=== PATIENT | female | born 1980 | race Caucasian/White ===

== ENCOUNTER 2021-10-07 00:32 | Day surgery (SDC) | payer OTHER, SELFPAY ==
[2021-10-01 13:46] VITALS: BMI 27.3
--- NOTE | 2021-10-03 10:32 | PC.NURSE ---
Report to the Outpatient Waiting Room, entrance under the green pavilion located off [facility], at time _0630 on date _10/07/21_. OR Time: 0830____. IF YOUR SURGERY TIME IS CHANGED, WE WILL CALL YOU 10/04/21 AFTERNOON - You and your visitor will be asked a series of questions to screen for COVID 19 for your protection. - Only one visitor is allowed at this time. - The patient visitor is requested to leave or wait in car when not with patient. - A mask is required within the hospital. Patients may have clear liquids (water, carbonated beverages, clear teas, apple juice) until 3 hours prior to surgery with a maximum of 20 ounces. - No food from midnight until time of surgery YOU MAY HAVE CLEAR LIQUIDS UNTIL 0530 ON THE MORNING OF SURGERY - Take the following medications with a SIP of water the morning of surgery: ___ESCITALOPRAM Medications to discontinue per physician N/A Date to take last dose N/A Please no make-up, nail azeri, hairspray, perfume, deodorant, or body powder the day of surgery. No jewelry (including any body piercings) or valuables the day of surgery, leave them at home. Please take a shower or bath the night before, or the morning of, surgery with an antibacterial soap. Wear comfortable, loose fitting clothing. Children are encouraged to wear pajamas. - Jewelry must be removed prior to entering the operating room. Rings and piercings that are not removed may be cut off. - The hospital will not accept responsibility for valuables. - Please leave all valuables, including medications, at home the day of surgery. If you are going home after surgery, a licensed pile driver operator helper must drive you home. - NO public transportation without another adult. - We recommend that an adult stay with you for 24 hours following discharge. - We also recommend that you do not drive, make important decision, drink alcoholic beverages, or take any drugs that were not prescribed by your health care provider for at least 24 hours after your discharge time. Follow any additional instructions given to you from your surgeon. If you or anyone in your household have experienced Covid symptoms in the past week, please notify your surgeon or the nurse liaison at the phone number below for possible testing. Telephone instructions given to __VALERIE and asked if any additional questions and then verbalized understanding. Patient advised to call surgeon office or pre surgery nurse liaison [phone] if any additional questions.
--- NOTE | 2021-10-06 16:17 | P.HP_ITS ---
H&P: HPI History of Present Illness Date/Time: 10/06/21 16:17 Chief Complaint: sterilization requested Narrative: Dorita is a 40yo P2002, who presents for sterilization procedure. She has a normal pap 06/2020. She is currently using nuvaring for BC and denies any issues w/ it; wants her to get a vasectomy but he's reluctant. She's tired of using hormonal control. She has h/o eclampsia and then severe pre- eclampsia. Her cycles are regular, very light and short. She reports having a Mirena in the past, however, they could not get the new IUD in x2 and she was having a lot of pain and bleeding. She is sexually active without issue. She denies any breast issues. Was recently started on lexapro for anxiety and reports doing much better. Review of Systems Review of Systems: All systems reviewed & are unremarkable except as noted in HPI and below (HPI) PMFSH Past Medical History Medical History Eclampsia Surgical History Surgical History Delivery by section xs 2 H/O gynecological procedure mirena iud insertion- 2010 - mirena iud removal 2013- mirena iud insertion 2014mirena iud removal 2019 mirena iud insertion 07/12/2020 Family History Family History Other Diabetes mellitus Hypertension Social History Social History Smoking status: Never smoker Alcohol intake: current Substance use: never Substance use type: does not use Living arrangements: with family Additional occupation/education comments: Asst principal Gender identity (if verbalized by the patient): Female Sexual Orientation (if Verbalized by the Patient): Straight or Heterosexual Spiritual care concerns: No Meds Home Medications and Allergies Home Medications Medication Instructions Recorded Confirmed Type escitalopram oxalate 10 mg tablet 10 mg PO DAILY 07/10/21 10/01/21 History (Lexapro) etonogestrel 0.12 mg-ethinyl 1 vag ring vaginal ONCE #3 ea 07/10/21 10/01/21 Rx estradiol 0.015 mg/24 hr vaginal ring (NuvaRing) cetirizine 10 mg tablet (Zyrtec) 10 mg PO DAILY 10/01/21 10/01/21 History Allergies Allergy/AdvReac Type Severity Reaction Status Date / Time No Known Allergies Allergy Unverified 07/10/21 15:45 Exam Const: General: cooperative, comfortable and no acute distress Resp: Effort & Inspection: normal respiratory effort Cardio: Rate: regular rate GI: Inspection: normal to inspection and non-distended GI Palp: Yes Soft to palpation : Other: deferred to OR Skin: General skin exam: normal color Neuro: General: patient oriented x3 Psych: Appearance: grossly normal Affect: normal affect Attitude: cooperative Assessment and Plan Assessment and plan (1) Admission for sterilization: Code(s): Z30.2 - Encounter for sterilization Status: Acute Plan - Sterilization discussed; all other control options discussed; pt aware it's a permanent procedure - Proceed with Laparoscopic bilateral salpingectomy - Ricks and benefits discussed in detail
--- NOTE | 2021-10-06 16:23 | WPDHPUPDATE1 ---
History and Physical Update Update Date/Time: 10/06/21 16:23 History and Physical has been reviewed, including an updated exam of the patient. There are NO changes in the patient's condition. Risks, benefits, and alternatives have been discussed and questions answered. Patient agrees to proceed with procedure.
[2021-10-07] VITALS (9 sets, daily range): BP systolic 78–127; BP diastolic 48–83; PULSE 57–80; RESP 12–18; TEMP 36.2–36.6; O2SAT 97–100
[2021-10-07] MEDS: LACTATED RINGERS 1,000 ML 30 ML IV CONT ×2 (07:03→09:12)
[2021-10-07] MEDS: KETOROLAC 15 MG/ML VIAL (*BKC) IV PUSH (07:04)
[2021-10-07] MEDS: ACETAMINOPHEN 500 MG TABLET 1000 MG PO (07:04)
--- NOTE | 2021-10-07 07:08 | WPDHPUPDATE1 ---
History and Physical Update Update Date/Time: 10/07/21 07:08 History and Physical has been reviewed, including an updated exam of the patient. There are NO changes in the patient's condition. Risks, benefits, and alternatives have been discussed and questions answered. Patient agrees to proceed with procedure.
--- NOTE | 2021-10-07 07:28 | P.PNAN_ITS ---
Anes - Initial Pre Proc Eval Procedure: Operation Date: 10/07/21 08:30 Proposed Procedures p Laparoscopic Bilateral Salpingectomy - Ame Kiran MD Date/Time: 10/07/21 07:28 Surgeon: Ame Kiran MD Pre Op Diagnosis: desired sterilzation Patient Data Age: 40 Gender: F Height: 1.52 m Weight: 63.2 kg Last Vital Signs Temp 36.2 C L 10/07/21 06:46 Pulse 80 10/07/21 06:46 Resp 18 10/07/21 06:46 BP 114/78 10/07/21 06:46 Pulse Ox 99 10/07/21 06:46 O2 Del Method Room Air 10/07/21 06:46 Allergies Allergy/AdvReac Type Severity Reaction Status Date / Time No Known Allergies Allergy Unverified 10/07/21 07:07 Home Medications Medication Instructions Recorded Confirmed Type escitalopram oxalate 10 mg tablet 10 mg PO DAILY 07/10/21 10/07/21 History (Lexapro) etonogestrel 0.12 mg-ethinyl 1 vag ring vaginal ONCE #3 ea 07/10/21 10/07/21 Rx estradiol 0.015 mg/24 hr vaginal ring (NuvaRing) cetirizine 10 mg tablet (Zyrtec) 10 mg PO DAILY 10/01/21 10/07/21 History Patient hx anesthesia problems: none Family hx anesthesia problems: none Results Review: All pre-operative results and documents have been reviewed as part of the pre- operative evaluation. [facility] Past Medical History Medical History (Updated 10/07/21 @ 07:28 by Magno Mac MD) Eclampsia Overweight Surgical History Surgical History Delivery by section xs 2 H/O gynecological procedure mirena iud insertion- 2010 - mirena iud removal 2013- mirena iud insertion 2014mirena iud removal 2019 mirena iud insertion 07/12/2020 Family History Family History Other Diabetes mellitus Hypertension Social History Social History Smoking status: Never smoker Alcohol intake: current Substance use: never Substance use type: does not use Living arrangements: with family Additional occupation/education comments: Asst principal Gender identity (if verbalized by the patient): Female Sexual Orientation (if Verbalized by the Patient): Straight or Heterosexual Spiritual care concerns: No Anes - Eval Final PreProcedure Day of Procedure 10/07/21 07:28 Patient weight: overweight Heart: regular rate and rhythm Lungs: clear to auscultation Airway: Mallampati scale class II Neurological: alert and oriented Last oral intake: >/= 8 hours ASA classification: II Emergent: no Anesthetic plan: proceed Anesthesia type and monitoring: general ETT and standard monitoring Results Review: All pre-operative results and documents have been reviewed as part of the pre- operative evaluation. Informed Consent: The patient's anesthetic plan and its attendant risks and benefits were discussed with the patient/family/POA. Questions were solicited and answers provided to the satisfaction of the patient/family/POA.
[2021-10-07] MEDS: BUPIVACAINE HCL 0.25% PF 30 ML VIAL INFILTRATE (08:42)
--- NOTE | 2021-10-07 09:04 | W.PM.PROC2 ---
Procedure Note - Detailed Date of Procedure 10/07/21 Pre-op Diagnosis desired sterilzation Post-op Diagnosis Same Procedure Performed Laparoscopic bilateral salpingectomy Surgeon Ame Kiran MD Anesthesia General Findings Uterus 8cm; small anterior/fundal fibroid ~1cm, normal tubes and ovaries bilaterally; good hemostasis at end of case. Description of Procedure Dorita was taken to the operating room where she was placed under general endotracheal anesthesia without complications. She was then prepped and draped in the usual sterile fashion dorsal lithotomy position with her legs in low Jaron stirrups and her arms tucked at her side with a strap over her chest. A time-out was performed and no preoperative antibiotics were indicated. Attention was turned down below where a bivalve speculum was placed within the vagina. The cervix was easily identified and grasped with a single-tooth tenaculum. The cervix was then dilated and uterus sounded. A diagnostic uterine manipulator was then placed without difficulty. My gloves were then changed and my attention was turned to the abdomen. An umbilical incision was made and a 5 mm trocar was placed under direct visualization without complications. Two additional 5mm ports were placed in the right and left lower quadrants under direct visualization without complications. She was then placed in steep Trendelenburg with the above findings noted. The left fallopian tube was elevated and the mesosalpinx was serially clamped, coagulated, and transected until the proximal and of the tube was clamped, coagulated, and transected from the uterus. The same procedure was then performed on the right side without complications. Good hemostasis was noted. The tubes were removed from the abdomen and sent separately. All instruments were removed from the abdomen and the insufflation was released. The laparoscopic incisions were reapproximated using 4-0 Monocryl and covered with Dermabond and the incision sites were infiltrated with 0.25% Marcaine for better pain control. The uterine manipulator was removed. Sponge, lap, instrument, and needle counts were correct at the end the procedure. Patient was awoken from general anesthesia and taken recovery in stable condition with plans of same-day discharge home. Estimated Blood Loss 5 IV Fluids 1,000 Pathology Yes Complications No immediate complications Condition Stable Disposition Same day [facility] Billing Surgery - Charge Forward: Surgery Billing
--- NOTE | 2021-10-07 09:29 | SUR.PHASEI ---
oral airway removed at 0936
== END 2021-10-07 10:52 | disposition home or self-care (01) ==
PROVIDERS: PCP Nurse Practitioner Family; Visit Provider Obstetrics & Gynecology
PROC: (CPT 49320; principal; 2021-10-07 08:30)
DX: Z30.2 Encounter for sterilization (principal); D25.9 Leiomyoma of uterus, unspecified
CPT/HCPCS: 58661; 88302; A9270; J1100; J1885; J2250; J2405; J2704; J3010; J7120

== ENCOUNTER 2023-01-23 09:58 | Outpatient (CLI) | payer OTHER, SELFPAY ==
--- NOTE | ~2023-01-23 | MM_ITS ---
EXAMINATION: MM screening stuart BI w carlyn HISTORY: Screening mammogram TECHNIQUE: Craniocaudal and mediolateral oblique 3-D tomosynthesis images were obtained and synthetic 2-D images were generated. CAD analysis was submitted and interpreted. COMPARISON: No prior mammogram is available for comparison at this institution. BREAST PARENCHYMAL COMPOSITION: The breasts are heterogeneously dense, which may obscure small masses . FINDINGS: There is no evidence of suspicious mass, calcification, or architectural distortion to sugg est malignancy in either breast. IMPRESSION: 1. No mammographic evidence of malignancy. 2. Recommend routine screening mammography in one year. BI-RADS Category 1: Negative Reviewed, dictated and finalized at location A.
== END 2023-01-23 09:59 | disposition home or self-care (01) ==
LOC: ANHIMG 10:00
PROVIDERS: PCP Nurse Practitioner Family; Visit Provider Student in an Organized Health Care Education/Training Program
DX: Z12.31 Encounter for screening mammogram for malignant neoplasm of breast (principal)
CPT/HCPCS: 77063; 77067

== ENCOUNTER 2024-02-04 08:21 | Outpatient (CLI) | payer OTHER, SELFPAY ==
--- NOTE | ~2024-02-04 | MM_ITS ---
EXAMINATION: MM screening stuart BI w carlyn HISTORY: Screening TECHNIQUE: Craniocaudal and mediolateral oblique 3-D tomosynthesis images were obtained and synthetic 2-D images were generated. CAD analysis was submitted and interpreted. COMPARISON: 01/23/2023 BREAST PARENCHYMAL COMPOSITION: Dense: The breasts are heterogeneously dense, which may obscure small masses FINDINGS: There is no evidence of suspicious mass, calcification, or architectural distortion to sugg est malignancy in either breast. There has been no suspicious interval change. IMPRESSION: 1. No mammographic evidence of malignancy. 2. Recommend routine screening mammography in one year. BI-RADS Category 1: Negative Reviewed, dictated and finalized at location B.
== END 2024-02-04 08:22 | disposition home or self-care (01) ==
LOC: ANHIMG 08:26
PROVIDERS: PCP Physician Assistant; Visit Provider Obstetrics & Gynecology
DX: Z12.31 Encounter for screening mammogram for malignant neoplasm of breast (principal)
CPT/HCPCS: 77063; 77067

== ENCOUNTER 2025-02-24 07:59 | Outpatient (CLI) | payer OTHER, SELFPAY ==
--- NOTE | ~2025-02-24 | MM_ITS ---
EXAMINATION: MM screening stuart BI w carlyn HISTORY: Screening TECHNIQUE: Craniocaudal and mediolateral oblique 3-D tomosynthesis images were obtained and synthetic 2-D images were generated. CAD analysis was submitted and interpreted. COMPARISON: Comparison to multiple prior studies sequentially, with oldest reviewed study dated 01/23/2023. BREAST PARENCHYMAL COMPOSITION: Dense: The breasts are heterogeneously dense, which may obscure small masses FINDINGS: There is no evidence of suspicious mass, calcification, or architectural distortion to suggest malignancy in either breast. There has been no suspicious interval change. IMPRESSION: 1. No mammographic evidence of malignancy. 2. Recommend routine screening mammography in one year. BI-RADS Category 1: Negative Reviewed, dictated and finalized at location B. CIPAL PROCESS ENGINEER
--- OUTSIDE RECORDS SUMMARY | 2025-02-24 08:02 | XMS_ITS | Clinical Summary ---
Author Organization [facility] Address [facility] [facility] [place] [address] Care Team Providers Care It Security Analyst Name Role Phone Maddie Carmona PA-C Primary Care Provider [phone] Quang Hartley MD Unavailable [phone] Source Comments [facility],non-owned Affiliates and Associated Physician Practices is amultiple site organization consisting of ambulatory clinics and hospital sitesin [place], [place], [place] and [place]. This disclosure is being madepursuant to the Care Everywhere program and may not contain all information available regarding this patient. Last updated 18.[facility] Allergies No known active allergies Medications * Be aware that medications may not be up to date on this document. Alwaysverify current medications with the patient. levonorgestrel (MIRENA, 52 MG,) 20 MCG/24HR IUD 1 device by Intrauterine route as directed Active OtherIndication s:ZEAL energy drink Take 1 bottles by mouth once daily Reasons: ZEAL energy drink Active Active Problems No known active problems Family History Medical History Relation Name Comments Diabetes - Type 2 Father Cancer - Other Maternal Grandfather pancr eatic cancer Alzheimer's Disease Maternal Grandmother Hypertension Mother Cancer - Other Paternal Grandfather lung cancer Cancer - Other Paternal Grandmother non-H odgkins Lymphoma Diabetes - Type 2 Paternal Grandmother Other Sister pterygium Relation Name Status Comments Father Alive Maternal Grandfather Maternal Grandmother Mother Alive Paternal Grandfather Paternal Grandmother Sister Alive Social History Tobacco Use Types Packs/Day Years Used Date Smoking Tobacco: Never Smokeless Tobacco: Never Tobacco Cessation:Counseling Given: Yes Alcohol Use Standard Drinks/Week Comments No 0 (1 standard drink = 0.6 oz pur e alcohol) Comments No Sex and Gender Information Value Date Recorded Sex Assigned at Not on file Legal Sex Female 10:31 AM VIDEO GAME MAKER Gender Identity Not on file Sexual Orientation Not on file Last Filed Vital Signs Vital Sign Reading Time Taken Comments Blood Pressure 100/62 05/06/2019 10:27 AM VIDEO GAME MAKER Pulse 90 05/06/2019 10:27 AM VIDEO GAME MAKER Temperature 36.7 C (98 F) 05/06/2019 10:27 AM VIDEO GAME MAKER Respiratory Rate - - Oxygen Saturation 99% 05/06/2019 10: 27 AM VIDEO GAME MAKER Inhaled Oxygen Concentration - - Weight 57.1 kg (125 lb 12.8 oz) 020 10:27 AM VIDEO GAME MAKER Height 152.4 cm (5') 05/06/2019 10:27 AM VIDEO GAME MAKER Body Mass Index 24.57 05/06/2019 10:27 AM VIDEO GAME MAKER Plan of Treatment Health Maintenance Due Date Last Done Comments MAMMOGRAM 1982 HIV SCREENING 1997 HEPATITIS C SCREENING 12/18/2000 DTAP/TDAP/TD VACCINES (1 - Tdap) 2001 HEPATITIS B VACCINE (1 of 3 - 19+ 3-dose series) 2001 HPV VACCINE (1 - 3-dose SCDM series) 2009 DEPRESSION SCREENING 04/13/2024 LIPID TESTING 05/10/2024 05/10/2019, 05/10/2019 COVID-19 VACCINE (1 - 2023-2 5 season) 2024 INFLUENZA VACCINE (#1) 2024 ZOSTER VACCINE (1 of 2) 2032 HIB VACCINE Aged Out No longer eligi ble based on patient's age to complete this topic MENINGOCOCCAL (Group B) VACCINE SHARED DECISION-MAKING Aged Out No longer eligible based on patient's age to complete this topic MENINGOCOCCAL GROUPS A/C/Y/W VACCINE Aged Out No longer eligible b ased on patient's age to complete this topic PNEUMOCOCCAL VACCINE Aged Out No long er eligible based on patient's age to complete this topic Procedures Procedure Name Priority Date/Time Associated Diagnosis Comments LIPID PROFILE 05/10/2019 8:06 AM VIDEO GAME MAKER from Last 3 Months or Most Recently Relevant to Health Maintenance Results * (ABNORMAL) LIPID PROFILE (05/10/2019 8:06 AM VIDEO GAME MAKER) [facility] Signature Cholesterol 198 <200 mg/dL [facility] HDL Cholesterol 65 >50 mg/dL [facility] Triglycerides 66 <150 mg/dL [facility] LDL Calculated 117(H) mg/dL (calc) [facility] Comment: Reference range: <100 Desirable range <100 mg/dL for primary prevention; <70 mg/dL for patients with CHD or diabetic patients with > or = 2 CHD risk factors. LDL-C is now calculated using the Stone calculation, which is a validated novel method providing better accuracy than the Friedewald equation in the estimation of LDL-C. Natalio JOSE et al. ANAMARIA. 2013;310(19): 5430-6734 (http://education.XDN/[employer]/faq/AGB730) CHOL/HDLC RATIO 3.0 <5.0 (calc) [facility] Non HDL Cholesterol 133(H) <130 mg/dL (calc) [facility] Comment: For patients with diabetes plus 1 major ASCVD risk factor, treating to a non-HDL-C goal of <100 mg/dL (LDL-C of <70 mg/dL) is considered a therapeutic option. See Note See Below [facility] Comment: We received your handwritten test order and performed the AMA defined lipid panel. If this is not what you intended to order, please contact your local client relationship executive immediately so that we may adjust our billing appropriately. You may also inquire about alternative or additional testing. Test Performed at: [facility] [id number] [place] [address] [facility] DO,MPH 05/10/2019 8:06 AM VIDEO GAME MAKER 05/10/2019 8:06 AM VIDEO GAME MAKER Maddie Carmona PA-C LAB - CHEMISTRY ORDERABLES Final Result [facility] [address] [place] [address] from Last 3 Months or Most Recently Relevant to Health Maintenance Insurance [facility] Care Teams It Security Analyst Relationship Specialty Start Date End Date Maddie Carmona PA-C [id number] [place] [address] PCP - General Physician Fruit Picker Machine Operator 04/19/18 [place] [address] [place] [address] Obstetrics and Gynecology 05/06/19
== END 2025-02-24 08:00 | disposition home or self-care (01) ==
LOC: ANHFOHIMG 08:01
PROVIDERS: PCP Physician Assistant; Visit Provider Obstetrics & Gynecology
DX: Z12.31 Encounter for screening mammogram for malignant neoplasm of breast (principal)
CPT/HCPCS: 77063; 77067